=== PATIENT | male | born 1945 | race Caucasian/White ===

== ENCOUNTER 2020-10-08 14:04 | Outpatient (CLI) | payer MEDICARE, OTHER ==
--- NOTE | 2020-10-08 14:25 | RAD ---
EXAM: Two views chest PROVIDED CLINICAL HISTORY: Right-sided chest wall pain. Patient complains of severe pain right posterior ribs and spine for 2 mo nths. COMPARISON: 12/07/2016 FINDINGS: Cardiac silhouette and pulmonary vasculature are within normal limits. The lungs are clear. Mild deg enerative changes in the spine. No interval change compared to prior study. IMPRESSION: No acute cardiopulmonary process.
== END 2020-10-08 14:05 | disposition home or self-care (01) ==
LOC: SCSRAD 14:04
PROVIDERS: ATTEND Family Medicine Sports Medicine
DX: R07.89 Other chest pain (principal)
CPT/HCPCS: 71046

== ENCOUNTER 2020-10-09 08:02 | Outpatient (CLI) | payer MEDICARE, OTHER ==
--- NOTE | 2020-10-09 09:26 | MRI ---
Exam: Thoracic spine MRI without contrast HISTORY: Right-sided chest wall pain. COMPARISON: None. FINDINGS: Heterogeneous T1 marrow signal intensity of the thoracic vertebra suggesting senescent change. There is T1 marrow signal hypointensity with associated T2 and STIR hyperintensity involving the inferior endplate of T6 and superior endplate of T7 suggesting type I Modic change. The possibility of underly ing mild compression deformity along both endplates cannot be entirely excluded. There is loss of mild vertebral body height, T6. Associated mild kyphosis. Beyond the edema at the inferior endplate o f T6 and superior plate of T7, there are no additional areas of STIR hyperintensity. No evidence of ligamentous injury. Visualized mediastinum, lung parenchyma and solid organs have appropriate signal intensity. Conus medullaris terminates at the superior aspect of L1. The thoracic cord has a normal size and sig nal intensity. No cord expansion or cord malacia. Throughout the thoracic spine, neural foramina are patent. Spondylolisthesis: 2.5 mm of anterolisthesis of T2 upon T3. T2-T3: Broad-based disc bulge. Minimal central canal stenosis. T5-T6: Central/right paracentral disc herniation. Mild deformity of the thoracic cord. Mild central c anal stenosis. T10-T11 and T11-T12: Minimal posterior disc abnormality. No significant central canal stenosis. IMPRESSION: . Multilevel degenerative changes of the thoracic spine as detailed above. No significant central can al stenosis or significant neural foraminal narrowing. There is mass effect upon the right hemicord without cord signal abnormality at the T5-T6 level. 2. Type I Modic changes at T6-T7. Superimposed mild inferior endplate compression deformity at T6 is suspected. There is mild loss of vertebral body height. There is associated kyphosis at T6-T7. Correlate for point tenderness. CODE T Transcribed Date/Time: 10/09/2020 10:16 AM
== END 2020-10-09 08:03 | disposition home or self-care (01) ==
LOC: TBSIIMAG 08:02
PROVIDERS: ATTEND Family Medicine Sports Medicine
DX: R07.89 Other chest pain (principal); M47.814 Spondylosis without myelopathy or radiculopathy, thoracic region; G95.89 Other specified diseases of spinal cord; M40.204 Unspecified kyphosis, thoracic region
CPT/HCPCS: 72146

== ENCOUNTER 2021-01-22 10:04 | Day surgery (SDC) | payer MEDICARE, OTHER ==
[2021-01-21 12:36] VITALS: BMI 29.1
[2021-01-22] MEDS ORDERED: Ondansetron PF 4 MG/2 ML Vial ONE (10:23)
[2021-01-22] MEDS ORDERED: Ketorolac Tromethamine 30 MG/ML VIAL ONE (10:23)
[2021-01-22] MEDS ORDERED: PROPOFOL 200 MG/20 ML VIAL ONE (10:23)
[2021-01-22] MEDS ORDERED: Lidocaine 1% PF 5 ML VIAL ONE (10:23)
[2021-01-22] MEDS ORDERED: Dexamethasone 20 MG/5 ML VIAL ONE (10:23)
[2021-01-22] MEDS ORDERED: Rocuronium Bromide 10 MG/ML (10ML VIAL) ONE (10:23)
[2021-01-22] MEDS ORDERED: Sodium Chloride 0.9% 100 ML ONE (12:04)
[2021-01-22] MEDS ORDERED: CEFAZOLIN 1 GM VIAL ONE (12:04)
[2021-01-22] MEDS ORDERED: Lidocaine 1% (PF) 30 ML VIAL ONE (13:08)
[2021-01-22] MEDS ORDERED: Bupivacaine PF 0.5% 30 ML VIAL ONE (13:08)
[2021-01-22] MEDS ORDERED: methylPREDNISolone Acetate 40 mg/ml Vial ONE (13:08)
[2021-01-22] MEDS ORDERED: Iopamidol 20 ML ONE (13:08)
[2021-01-22] MEDS ORDERED: Triamcinolone 40 MG/ML VIAL ONE (13:08)
[2021-01-22] MEDS ORDERED: Fentanyl 100 MCG/2 ML VIAL ONE (13:09)
[2021-01-22] MEDS ORDERED: IOPAMIDOL ONE (13:47)
[2021-01-22] MEDS ORDERED: SUGAMMADEX SODIUM 200 MG/2 ML VIAL ONE (14:30)
--- NOTE | 2021-01-22 17:05 | RAD ---
TWO FLUOROSCOPIC SPOT IMAGES OF THE THORACIC AND LUMBAR SPINE: 01/22/21 INDICATIONS: Kyphoplasty. COMPARISON: MR of the thoracic spine dated 10/09/20. FINDINGS: Two submitted fluoroscopic spot images of the thoracic spine demonstrates kyphoplasty at three separa te levels. The levels are not designated on the provided imaging. Spinal alignment is within normal limits. There is a wedge compression abnormality of the suspected T12 vertebral body which appears ne w from the comparison exam. IMPRESSION: Intraoperative C-arm views for kyphoplasty at the suspected T12, L1, and L2. POS: REGIS
--- NOTE | 2021-01-24 08:49 | OP ---
DATE OF PROCEDURE: 01/22/2021 PREOPERATIVE DIAGNOSES: Wedge compression fracture of T12, L1, and L2 all with delayed healing. POSTOPERATIVE DIAGNOSES: Wedge compression fracture of T12, L1, and L2 all with delayed healing. PROCEDURES PERFORMED: 1. Kyphoplasty balloon T12. 2. Balloon kyphoplasty, L1. 3. Balloon kyphoplasty, L2. ANESTHESIA: General endotracheal anesthesia. BLOOD LOSS: Less than 10 mL. SUMMARY: Risks and benefits were discussed with the patient including, but not limited to, bleeding, infection, nerve damage, worsening pain, no relief of pain. Understood these risks, wished to proceed. He was taken to the OR, prepped and draped in standard fashion. General endotracheal anesthesia was induced without complication. Fluoroscopic guidance was used to identify the T12, L1, and L2 interspace, counting from the L5-S1 level. T12 was addressed first. A skin wheal was raised right of midline overlying the pedicle on the right side, which was identified easily under fluoroscopic guidance and using AP and cephalad caudad obliques, the pedicle was aligned with the vertebral body. Under AP view trocar was advanced ensuring no violation of the medial wall of the pedicle. Lateral view was then obtained. Under lateral view, the trocar was then advanced into the posterior 1/3rd of the vertebral body. Trocar was then placed into the L1 vertebral body, right pedicle in identical fashion and trocar also advanced to the left pedicle at L2 in identical fashion. At T12, L1, and L2, the curved introducer was then placed under AP and lateral fluoroscopic imaging views. After this, the balloon was placed into the vertebral body. The catheter was withdrawn such that the balloon could be inflated at each level. T12 was inflated first. Peak pressure 200, good inflation, good reduction. Second balloon at L1 was inflated to 200 psi, good inflation. No rupture of the balloon. Good reduction. At L2, the balloon was inserted, inflated to 200 psi with good reduction. Balloons were deflated and removed and all trocars and then each catheter was removed. The curved tip cement introducer was then placed into each trocar under AP and lateral views. Cement was then mixed in a standard fashion and placed in T12 vertebrae first using AP, lateral, and oblique views to ensure proper cement spread and ensuring no spread out of the vertebral body. When spread of cement approached the posterior wall, injection was terminated. L1 was then injected next cement using AP and lateral views. Total cement injected at this level was 6 mL. Total semen at T12 was 4.5 mL and both of these injection was terminated when contrast approached the posterior wall. Additional cement was then mixed, injected into L2 using AP and lateral views. Total cement injected was 7 mL. Cement injection was terminated when it approached the posterior wall. All stylettes were then replaced in the trocars. Each trocar was rotated three turns clockwise and three turns counter-clockwise and then removed. Final images saved AP and lateral visualize spread of the cement. There was good spread noted in both AP and lateral views of T12, L1, and L2. There was no complications. All trocars were removed intact and he tolerated the procedure very well. Job ID: [id number]
== END 2021-01-22 16:29 | disposition home or self-care (01) ==
LOC: SDC 10:04
PROVIDERS: ATTEND Anesthesiology Pain Medicine
PROC: 0PS43ZZ Reposition Thoracic Vertebra, Percutaneous Approach (ICD-10-PCS; principal; 2021-01-22)
PROC: 0PU43JZ Supplement Thoracic Vertebra with Synthetic Substitute, Percutaneous Approach (ICD-10-PCS; 2021-01-22)
PROC: 0QS03ZZ Reposition Lumbar Vertebra, Percutaneous Approach (ICD-10-PCS; 2021-01-22)
PROC: 0QU03JZ Supplement Lumbar Vertebra with Synthetic Substitute, Percutaneous Approach (ICD-10-PCS; 2021-01-22)
PROC: 0PB43ZX Excision of Thoracic Vertebra, Percutaneous Approach, Diagnostic (ICD-10-PCS; 2021-01-22)
PROC: 0QB03ZX Excision of Lumbar Vertebra, Percutaneous Approach, Diagnostic (ICD-10-PCS; 2021-01-22)
DX: S22.080A Wedge compression fracture of T11-T12 vertebra, initial encounter for closed fracture (principal); S32.010A Wedge compression fracture of first lumbar vertebra, initial encounter for closed fracture; S32.020A Wedge compression fracture of second lumbar vertebra, initial encounter for closed fracture; I10 Essential (primary) hypertension; G20 Parkinson's disease; M19.90 Unspecified osteoarthritis, unspecified site; F32.9 Major depressive disorder, single episode, unspecified; K21.9 Gastro-esophageal reflux disease without esophagitis; F41.9 Anxiety disorder, unspecified; Z79.82 Long term (current) use of aspirin; Z79.899 Other long term (current) drug therapy; Z96.653 Presence of artificial knee joint, bilateral; Z98.1 Arthrodesis status
CPT/HCPCS: 72100; 76000; 88307; 88311; 88341; 88342; 88365; J0690; J1100; J1885; J2001; J2405; J2704; J2920; J3010; J3301; J3490; Q9966; S0020

== ENCOUNTER 2021-02-08 13:03 | Outpatient (CLI) | payer MEDICARE, OTHER | END 2021-02-08 13:04 | disposition home or self-care (01) | LOC: RAD 13:03 | PROVIDERS: ATTEND Internal Medicine Hematology & Oncology | DX: C90.00 Multiple myeloma not having achieved remission (principal); M47.812 Spondylosis without myelopathy or radiculopathy, cervical region; M47.816 Spondylosis without myelopathy or radiculopathy, lumbar region; M19.011 Primary osteoarthritis, right shoulder; M19.012 Primary osteoarthritis, left shoulder; M16.0 Bilateral primary osteoarthritis of hip | CPT/HCPCS: 77075 ==

== ENCOUNTER 2021-04-07 08:12 | Outpatient (CLI) | payer MEDICARE, OTHER | END 2021-04-07 08:13 | disposition home or self-care (01) | LOC: TBSIIMAG 08:12 | PROVIDERS: ATTEND Nurse Practitioner Family | DX: M54.14 Radiculopathy, thoracic region (principal); S22.071A Stable burst fracture of T9-T10 vertebra, initial encounter for closed fracture; S22.059A Unspecified fracture of T5-T6 vertebra, initial encounter for closed fracture; S22.069A Unspecified fracture of T7-T8 vertebra, initial encounter for closed fracture | CPT/HCPCS: 72146 ==

== ENCOUNTER 2021-05-03 16:15 | Outpatient (CLI) | payer MEDICARE, OTHER ==
[2021-01-20 01:20] LABS: SARS-CoV-2 PCR by NAA Not Detected (NotDetected)
[2021-05-03 17:35] LABS: Hemoglobin 13.3 g/dL (13.5-17.5); Mean Corpuscular HGB CONC 32.2 g/dL (32.0-36.0); Mean Corpuscular Hemoglobin 32.5 pg (27.0-33.0); Mean Platelet Volume 10.8 fl (7.4-10.4); Platelet Count 131 10x3/uL (150-450); RBC Distribution Width 13.9 % (11.5-14.5); Red Blood Cell (RBC) Count 4.09 10x6/uL (4.32-5.72)
[2021-05-03 17:45] LABS: Anion Gap 14 mmol/L (10-20); BUN (Urea Nitrogen) 19 mg/dL (8.4-25.7); Calc. Creatinine Clearance 0 mL/min (70-130); Calcium 8.6 mg/dL (7.8-10.44); Carbon Dioxide 25 mmol/L (23-31); Chloride 103 mmol/L (98-107); Glucose 114 mg/dL (83-110); Potassium 4.6 mmol/L (3.5-5.1); Sodium 137 mmol/L (136-145)
[2021-05-03 18:30] LABS: Band 5 % (5-11); Eosinophils 16 % (0-10); Lymphocytes 30 % (21-51); Monocytes 22 % (0-10); Neutrophil 26 % (42-75); Reactive Lymphocytes 1 % (0-10)
[2021-05-03 18:31] LABS: Giant Platelets SLIGHT; Large Platelets SLIGHT; MDiff Complete? YES; Platelet Morphology Comment Appears Adequate; RBC Morphology Normal; Toxic Granulation SLIGHT
== END 2021-05-03 16:16 | disposition home or self-care (01) ==
LOC: LABBT 16:15
PROVIDERS: ATTEND Anesthesiology Pain Medicine
DX: Z01.818 Encounter for other preprocedural examination (principal); M54.14 Radiculopathy, thoracic region
CPT/HCPCS: U0003; U0005; 71046; 80048; 85025; 93005; 93010

== ENCOUNTER 2021-05-06 10:31 | Day surgery (SDC) | payer MEDICARE, OTHER ==
[2021-05-05 12:05] VITALS: BMI 26.9
[2021-05-06] MEDS ORDERED: Ketorolac Tromethamine 30 MG/ML VIAL ONE (11:36)
[2021-05-06] MEDS ORDERED: Acetaminophen 500 MG TAB ONE (11:36)
[2021-05-06] MEDS ORDERED: Fentanyl 100 MCG/2 ML VIAL ONE (12:53)
[2021-05-06] MEDS ORDERED: Lidocaine 1% w/Epinephrine 1:100K 20 ML VIAL ONE (12:57)
[2021-05-06] MEDS ORDERED: Bupivacaine 0.25% HCL 30 ML VIAL ONE (12:57)
[2021-05-06] MEDS ORDERED: ePHEDrine Sulfate 50 MG/10 ML VIAL ONE (13:18)
[2021-05-06] MEDS ORDERED: Lidocaine 1% PF 5 ML VIAL ONE (13:18)
[2021-05-06] MEDS ORDERED: Ondansetron PF 4 MG/2 ML Vial ONE (13:18)
[2021-05-06] MEDS ORDERED: PROPOFOL 200 MG/20 ML VIAL ONE (13:18)
== END 2021-05-06 15:50 | disposition home or self-care (01) ==
LOC: SDC 10:31
PROVIDERS: ATTEND Specialist
PROC: 02HV33Z Insertion of Infusion Device into Superior Vena Cava, Percutaneous Approach (ICD-10-PCS; principal; 2021-05-06)
DX: C90.00 Multiple myeloma not having achieved remission (principal); Z79.51 Long term (current) use of inhaled steroids; Z79.82 Long term (current) use of aspirin; Z79.899 Other long term (current) drug therapy; I10 Essential (primary) hypertension; M19.90 Unspecified osteoarthritis, unspecified site; J30.2 Other seasonal allergic rhinitis; K21.9 Gastro-esophageal reflux disease without esophagitis; G20 Parkinson's disease
CPT/HCPCS: 36561; 71045; C1788; J0690; J1642; J1885; J2405; J2704; J3010; S0020

== ENCOUNTER 2021-06-02 07:29 | Outpatient (CLI) | payer MEDICARE, OTHER | END 2021-06-02 07:30 | disposition home or self-care (01) | LOC: SCSMRI 07:29 | PROVIDERS: ATTEND Nurse Practitioner Family | DX: S32.009A Unspecified fracture of unspecified lumbar vertebra, initial encounter for closed fracture (principal); M48.061 Spinal stenosis, lumbar region without neurogenic claudication; M51.36 Other intervertebral disc degeneration, lumbar region; M51.37 Other intervertebral disc degeneration, lumbosacral region; M51.35 Other intervertebral disc degeneration, thoracolumbar region | CPT/HCPCS: 72148 ==

== ENCOUNTER 2022-03-18 05:52 | Day surgery (SDC) | payer MEDICARE, OTHER ==
[2022-03-14 14:01] VITALS: BMI 25.1
[2022-03-18] MEDS ORDERED: Fentanyl 100 MCG/2 ML VIAL ONE ×2 (06:30)
[2022-03-18] MEDS ORDERED: Bupivacaine 0.25% 10 ML VIAL ONE (06:58)
[2022-03-18] MEDS ORDERED: Famotidine/PF 20 mg/2ml Vial ONE (07:12)
[2022-03-18] MEDS ORDERED: ceFAZolin (BATCH) 2 GM/100 ML BAG ONE (07:26)
[2022-03-18] MEDS ORDERED: ePHEDrine 50 MG/ML VIAL ONE (07:45)
[2022-03-18] MEDS ORDERED: Ondansetron PF 4 MG/2 ML Vial ONE (07:45)
[2022-03-18] MEDS ORDERED: Lidocaine 1% PF 5 ML VIAL ONE (07:45)
[2022-03-18] MEDS ORDERED: Glycopyrrolate 0.2 MG/ML 5 ML SYRINGE ONE (07:45)
[2022-03-18] MEDS ORDERED: PROPOFOL 200 MG/20 ML VIAL ONE (07:45)
== END 2022-03-18 11:00 | disposition home or self-care (01) ==
LOC: SDC 05:52
PROVIDERS: ATTEND Urology
PROC: 0VBF0ZZ Excision of Right Spermatic Cord, Open Approach (ICD-10-PCS; principal; 2022-03-18)
DX: D17.6 Benign lipomatous neoplasm of spermatic cord (principal); M79.89 Other specified soft tissue disorders; C90.00 Multiple myeloma not having achieved remission; K21.9 Gastro-esophageal reflux disease without esophagitis; M19.90 Unspecified osteoarthritis, unspecified site; I10 Essential (primary) hypertension; Z79.82 Long term (current) use of aspirin; Z79.899 Other long term (current) drug therapy
CPT/HCPCS: 88305; 88325; J0690; J2405; J2704; J3010; J3490; S0020; S0028

== ENCOUNTER 2024-01-01 15:19 | Outpatient (CLI) | payer MEDICARE, OTHER | END 2024-01-01 15:20 | disposition home or self-care (01) | LOC: SCSRAD 15:19 | PROVIDERS: ATTEND Family Medicine Sports Medicine | DX: Z01.818 Encounter for other preprocedural examination (principal) | CPT/HCPCS: 71046 ==